=== PATIENT | female | born 1930 | race Caucasian/White ===

== ENCOUNTER 2017-05-03 15:34 | Observation (INO) | payer MEDICARE, OTHER ==
[2017-05-03] MEDS ORDERED: Zolpidem 5 MG Tab PO PRN (16:11)
[2017-05-03] MEDS ORDERED: Sodium Chloride 0.9% 10 ML Syringe FLUSH PRN (16:11)
[2017-05-03] MEDS ORDERED: SOLIFENACIN 5 MG PO PRN (16:15)
[2017-05-03 16:49] LABS: CHLORIDE,CL 102 mEq/L (98-106); SODIUM,NA 141 mEq/L (136-145)
[2017-05-03] MEDS: WARFARIN 7.5 MG PO SCH (17:13)
[2017-05-03] MEDS: Potassium Chloride 10 MEQ Tab.ER PO SCH (19:27)
[2017-05-03] MEDS ORDERED: Nitrofurantoin Monohydrate/Macrocrystalline 100 MG Cap PO SCH (20:00)
[2017-05-04] MEDS: PANTOPRAZOLE 40 MG PO SCH (06:48)
[2017-05-04] MEDS: LEVOTHYROXINE 50 MCG PO SCH (06:48)
[2017-05-04] MEDS: METOPROLOL SUCC 50 MG PO SCH (07:34)
[2017-05-04] MEDS: FUROSEMIDE 40 MG PO SCH (07:34)
[2017-05-04] MEDS: Potassium Chloride 10 MEQ Tab.ER PO SCH ×2 (07:36→17:18)
[2017-05-04] MEDS ORDERED: Potassium Chloride 10 MEQ Tab.ER PO SCH (08:00)
[2017-05-04] MEDS: cefTRIAXone 1 GM Vial IVPUSH SCH (09:22)
--- NOTE | 2017-05-04 09:23 | PN ---
DATE: 05/04/2017 S: Carla has had a good night. Her vitals have been fine. She has been afebrile. She has not had any hypotension or rashawn or tachy dysrhythmia. Her admit labs did show her to be hypokalemic and shows evidence of UTI. Adrián put her on Macrobid last night and she does have some renal dysfunction. She does list the cephalosporins as an allergy because of diarrhea. We will switch her over to Rocephin today. Her potassium was also low at 3.2, which we will correct. O: GENERAL: She feels fine. She is a pleasant, alert, and cooperative. HEENT: Grossly benign. NECK: Supple. Veins are flat. RESPIRATORY: Her lung sounds appear clear. CARDIAC: Tones appear regular. ABDOMEN: Soft and nontender. No flank pain. EXTREMITIES: No peripheral edema is seen. ASSESSMENT: 1. WEAKNESS. 2. UNSTEADINESS/DIZZINESS. 3. URINARY TRACT INFECTION. 4. HYPOKALEMIA. P: We will check a magnesium level today, start her on oral potassium replacement today, and repeat potassium level in the morning. I am going to switch her over IV Rocephin and urine culture is ordered. SONNY/VARSHA /[id number]
[2017-05-04] MEDS: WARFARIN 7.5 MG PO SCH (11:40)
[2017-05-05] MEDS: LEVOTHYROXINE 50 MCG PO SCH (06:43)
[2017-05-05] MEDS: PANTOPRAZOLE 40 MG PO SCH (06:43)
[2017-05-05 07:36] VITALS: BP 147/77
[2017-05-05] MEDS: METOPROLOL SUCC 50 MG PO SCH (07:52)
[2017-05-05] MEDS: cefTRIAXone 1 GM Vial IVPUSH SCH ×2 (07:53→09:15)
[2017-05-05] MEDS: FUROSEMIDE 40 MG PO SCH (07:54)
[2017-05-05] MEDS: Potassium Chloride 10 MEQ Tab.ER PO SCH (07:58)
[2017-05-05] MEDS ORDERED: cefTRIAXone 1 GM Vial IM ONE (09:10)
[2017-05-05] MEDS ORDERED: WARFARIN 7.5 MG PO SCH (12:00)
--- NOTE | 2017-05-06 07:13 | DISCH ---
ADMISSION DIAGNOSES: 1. Dizziness. 2. Weakness. 3. Likely orthostasis. 4. Chronic atrial fibrillation. 5. Hypokalemia. 6. Urinary tract infection. DISCHARGE DIAGNOSIS: 1. DIZZINESS, LIKELY SECONDARY TO ORTHOSTATIC HYPOTENSION. 2. HYPOKALEMIA, RESOLVED. 3. URINARY TRACT INFECTION. HISTORY: Carla is an 86-year-old, well known to me, who has been having about 2-3 week history of dizziness, lightheadedness, and feeling unsteady, sounds more like orthostasis than it did vertigo. She denied any spinning sensation. She had been seen in [place] and at the emergency room in [place], both times without an identifiable etiology. When she came to [place], we elected to put her in for observation and she was feeling quite low. At the time of her admission, she was found to have a slightly low potassium at 3.2 and evidence of a likely cystitis with a positive urine. HOSPITAL COURSE: We elected to cut back slightly on her beta-caitie. She has had no problems with rate control and she does feel much less orthostatic when she gets up and starts moving. We corrected her potassium with oral potassium replacement and she is on Rocephin for her UTI. For the most part over the last two days, she has done wonderful. She denies any complaints and corrected her electrolyte abnormalities. She has not run any fevers. She has been hemodynamically stable. We are going to ultimately leave her on a slightly lower dose of beta-caitie and Lasix. We will put her on daily potassium and she will have another seven days of oral antibiotics for her UTI. I will see her back in 2 weeks for followup. COMPLICATIONS: During her stay were none. CONSULTATIONS: None. DISPOSITION: Discharged home. SONNY/VARSHA /[id number]
== END 2017-05-05 13:00 | disposition home or self-care (01) ==
LOC: CC.MS 15:34 → UNDOADMOB 15:34 → CC.MS 16:12
PROVIDERS: ADMIT Family Medicine; ATTEND Family Medicine
DX: I95.1 Orthostatic hypotension (principal); E87.6 Hypokalemia; N39.0 Urinary tract infection, site not specified; I48.2 Chronic atrial fibrillation; I10 Essential (primary) hypertension; Z95.0 Presence of cardiac pacemaker; Z88.6 Allergy status to analgesic agent; Z88.1 Allergy status to other antibiotic agents; Z88.5 Allergy status to narcotic agent; Z88.0 Allergy status to penicillin; Z88.8 Allergy status to other drugs, medicaments and biological substances; Z79.899 Other long term (current) drug therapy; Z79.01 Long term (current) use of anticoagulants; Z85.3 Personal history of malignant neoplasm of breast; Z90.89 Acquired absence of other organs; Z96.659 Presence of unspecified artificial knee joint
CPT/HCPCS: 36415; 71020; 80048; 81001; 83735; 84443; 84484; 85025; 85610; 86140; 87086; 87088; 87186; 93005; 96372; 96374; A9270; G0378; J0696; 93010; 99217; 99220; 99225